=== PATIENT | female | born 2005 | race Caucasian/White ===

== ENCOUNTER 2025-01-22 11:51 | Emergency (ER) | payer SELFPAY ==
[2025-01-22 11:52] VITALS: BP 141/87; PULSE 90; RESP 18; TEMP 36.8; O2SAT 99; BMI 46.0
--- OUTSIDE RECORDS SUMMARY | 2025-01-22 12:34 | XMS_ITS | Data Portability ---
Author Organization [place] [facility] [place] [facility] Address [address] [place] [address] Assessment Encounter Date Assessment Date Assessment LastModified by Organization Details LastModified Time 08/31/2022 08/31/2022 Right distal ulnar contusion Patient seen in [facility] urgent care for right wrist injury this am. X-rays obtained in clinic showing no acute pathology. Recommend intermittent right wrist support brace along with heat vs ice and tylenol for pain relief. Recommend 3 week follow up office visit for re-evaluation and management. Work note given for today. All questions were answered to her satisfaction. bárbara Not available 08/31/2022 11:43:00 09/21/2022 09/21/2022 This is a 17-year-old female with resolved right wrist contusion. At this time I recommend she discontinue use of the brace. She is can continue to increase activities as tolerated. She is able to work without restrictions. She will follow-up in the office on an as-needed basis. bárbara Not available 09/21/2022 11:45:46 Plan of Treatment Reminders Order Date Submit Date Provider Last Modified By Organization Details Last Modified Time Details Appointments None recorde d. Lab None recorde d. Referral None recorde d. Procedures None recorde d. Surgeries None recorde d. Imaging XR, wrist 023 09/01/19 23 [email or web address] In-House Results, For Internal Use Only, Do Not Delete/merge, [id number] 11:33:02 Medication Orders None recorde d. Patient TargetsNo targets recorded. Patient InstructionsNo instructions recorded. Reason for Referral None Reported. Results Created Date Observation Date Name Description Value Unit Range Abnormal Flag Note LastModifiedBy Organization Detail LastModifiedTime 09/01/19 23 XR, wrist No observ ation record ed. bárbara In-House Results For Internal Use Only, Do Not Delete/merge, [id number] 08/31/2022 11:52:35 Result Notes None recorded. Problems Name Problem SNOMED Code Status Onset Date Resolution Date Notes Provider Name and Address Organization Details Recorded Time Pain of right wrist 390933268986650 Active 2022 Rosaura vela [facility] 11:10:34 Problem Notes None recorded. Medical Equipment None Reported. Allergies No known drug allergies Medications Name Sig Start Date Stop Date Status Note LastModified by Organization Details LastModified Time prednisone 20 mg tablet active Not Available Not Available No t Available amoxicillin 875 mg tablet 08/31 completed Not Available Not Available Not Available amoxicillin 875 mg-potassium clavulanate 125 mg tablet TAKE 1 TABLET BY MOUTH TWICE DAILY FOR 10 DAYS 08/31 completed Not Available Not Available Not Available duloxetine 20 mg capsule,delay ed release active Not Available Not Available N ot Available Wal-phed PE 10 mg tablet active Not Available Not Available Not Available Wegovy 0.25 mg/0.5 mL subcutaneous pen injector active Not Available Not Available Not Available Vitals Date Recorded Body height Body mass index (BMI) Body mass index (BMI) [Percentile] Per age and sex Body weight Provider Name and Address Organization Details Last Updated DateTime 08/31/2022 154.94 cm 43.5 kg/m2 99 % 327431.2 5 g Adilia Guadarrama [facility] 08/31/2022 11:05:19 Social History Question Answer Notes LastModified by Organizat ion Details LastModified Time Tobacco Smoking Status Current Every Day Smoker jose vela [facility] 08/31/2022 11:00:37 Do You Have An Advance Directive? No Information not available 08/31/2022 Are You Blind Or Do You Have Difficulty Seeing? No Information not available 08/31/2022 What Is Your Level Of Caffeine Consumption? Moderate Information not available 08/31/2022 Are You Deaf Or Do You Have Serious Difficulty Hearing? No Information not available 08/31/2022 What Type Of Diet Are You Following? REGULAR Information not available 08/31/2022 Which Of Your Hands Is Dominant? Right Information not available 08/31/2022 How Many Children Do You Have? 0 Information not available 08/31/2022 Do You Have Difficulty Walking Or Climbing Stairs? No Information not available 08/31/2022 Sex: Unknown Functional Status Question Answer Note LastModified by Organizat ion Details LastModified Time Do you have difficulty doing errands alone? No Information not available 08/31/2022 Are you able to care for yourself independently? Yes Information not available 08/31/2022 Do you have difficulty dressing, bathing, grooming, or toileting? No Information not available 08/31/2022 What is your exercise level? Moderate Information not available 08/31/2022 Mental Status Question Answer Note LastModified by Organization D etails LastModified Time Do you have difficulty concentrating, remembering or making decisions? No Information no t available 08/31/2022 Family History Nothing Reported. Medical History Condition Response Anxiety Disorder Y Depression Y Gynecological HistoryNo gynecological history recorded. Obstetrics History GPAL:G 0 P 0 0 0 0 Past Encounters Encounter ID Performer Location Encounter Start Date Encounter Closed Date Diagnosis/Indication Diagnosis SNOMED-CT Code Diagnosis ICD10 Code Diagnosis IMO Codes Diagnosis Note [id number] Young Bradshaw DO [facility] [address] [place] [address] 08/31/2022 10:38:43 08/31/2022 11:33:02 Pain of right wrist 9551578792 11914 M25.531 Contusion of wrist 82302 002 S60.211A [id number] Francesco Shetty MD [facility] [address] [place] [address] 09/21/2022 10:03:50 09/21/2022 10:35:53 Pain of right wrist [id number] 34141 M25.531 Health Concerns Section Related Observation LastModified by Organization Detai ls LastModified Time None Recorded Concern Status LastModified by Organization Details LastModified Time None Recorded Advance Directives Directive N: Payers Insurance Date Sequence Insurance Name Policy Number Policy Dubois Covered Member ID Dubois Member ID Guarantor Name 11/07/2022 1 [facility] Angelica Álvarez [id number] Angelica Álvarez 11/07/2022 1 [facility] - 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 C/o sharp burning 8/10 pain localized to the lateral wrist, radiating to right proximal forearm. Injury caused tingling and burning to distal right fingers that has now resolved. Has not taken medications or tried heat/ice for alleviation of symptoms. [place] numbness and weakness in right upper extremity. HANY NUÑEZ PA-C [address], [place], [address], [facility] 08/31/2022 11:53:29 09/21/2022 text/html ROS as noted in the HPI Patient is a 17-year-old female following up today for her right wrist. She is now about 2 weeks out from a wrist contusion. She states that overall her wrist is feeling much better. She has been taking her brace off while at work and has been able to use the wrist without any significant issues. She has had no further injury to the wrist. HANY NUÑEZ PA-C [address], [place], [address], [facility] 09/21/2022 11:45:50 OBGyn Episode No OBEpisode recorded.
[2025-01-22 13:01] VITALS: BP 144/93; PULSE 78; O2SAT 100
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
[2025-01-22 13:48] LABS: Hematocrit 37.8 % (37.0-47.0); Hemoglobin 12.9 g/dL (12.2-16.2); Immature Granulocytes % 0.3 %; Mean Corpuscular HGB Conc 34.1 g/dL (31.8-35.4); Mean Corpuscular Hemoglobin 31.9 pg (27.0-31.2); Mean Corpuscular Volume 93.3 fl (81-99); Nucleated Red Blood Cells % 0 %; Platelet Count 162 K/mm3 (142-424); Red Blood Count 4.05 M/mm3 (4.20-5.40); Red Cell Distribution Width-SD 41.1 fL; White Blood Count 7.9 K/mm3 (4.8-10.8)
[2025-01-22] MEDS: ACETAMINOPHEN 500MG TAB 1000 MG PO (13:56)
[2025-01-22] MEDS: ONDANSETRON 4MG/2ML VIAL 4 MG IV (13:57)
[2025-01-22 13:58] LABS: Albumin Level 5.3 g/dl (3.5-5.0); Chloride 102 mmol/L (98-107); Potassium 4.0 mmoL/L (3.5-5.1); Sodium 139 mmol/L (136-145)
[2025-01-22] MEDS: KETOROLAC 30MG/ML VIAL 30 MG IV (13:58)
[2025-01-22 14:01] LABS: Alanine Aminotransferase 14 U/L (12-78); Albumin/Globulin Ratio 2.0 (1.1-1.8); Alkaline Phosphatase 53 U/L (38-126); Anion Gap 13.0 mEq/L (5-15); Aspartate Amino Transferase 28 U/L (14-36); Bilirubin,Total 0.9 mg/dl (0.2-1.3); Blood Urea Nitrogen 8 mg/dl (7-17); Calcium 9.0 mg/dl (8.4-10.2); Carbon Dioxide 28 mmol/L (22.0-30.0); Creatinine Clearance Estimated 71 mL/min (50-200); Creatinine,Serum 0.90 mg/dl (0.52-1.04); Estimated Glomerular Filt Rate 79 ml/min (>60); GFR (African American) 96 ML/MIN (>60); Globulin 2.6 g/dL (1.3-3.2); Glucose 100 mg/dl (74-100); Lipase 43 U/L (23-300); Total Protein,Serum 7.9 g/dl (6.3-8.2)
[2025-01-22 14:03] VITALS: BP 119/71; PULSE 62; O2SAT 100
[2025-01-22 14:17] LABS: HCG Qualitative, Serum Negative (Negative)
[2025-01-22 14:27] LABS: Benzodiazepines Screen,Urine Negative ng/ml (<200)
[2025-01-22 14:28] LABS: Amphetamine/Metha Screen,Urine Negative ng/ml (<1000)
[2025-01-22 14:29] LABS: Barbiturates Screen,Urine Negative ng/ml (<200)
[2025-01-22 14:31] LABS: Methadone Screen,Urine Negative ng/ml (<300); Opiate Screen,Urine Negative ng/ml (<300)
[2025-01-22 14:32] LABS: Phencyclidine Screen,Urine Negative ng/ml (<25)
[2025-01-22 15:06] VITALS: BP 117/91; PULSE 62; RESP 16; TEMP 36.8; O2SAT 100
[2025-01-23 09:25] LABS: Hepatitis C Antibody Non Reactive (Non Reactive)
== END 2025-01-22 15:07 | disposition left against medical advice (07) ==
PROVIDERS: Emergency Provider Student in an Organized Health Care Education/Training Program
DX: R51.9 Headache, unspecified (principal); M54.59 Other low back pain; V49.50XA Passenger injured in collision with unspecified motor vehicles in traffic accident, initial encounter
CPT/HCPCS: 70450; 72125; 72128; 72131; 72192; 80053; 80307; 80320; 83690; 84703; 85025; 86803; 87389; 96374; 96375; 99285; J1885; J2405